=== PATIENT | female | born 1950 | race Caucasian/White ===

== ENCOUNTER → 2023-09-06 08:38 | Outpatient (REF) | payer MEDICARE, OTHER, SELFPAY | LOC: RAD 08:38 | PROVIDERS: ATTENDING PHYSICIAN Internal Medicine Cardiovascular Disease; FAMILY PHYSICIAN Family Medicine | DX: R06.02 Shortness of breath (principal); R07.89 Other chest pain | CPT/HCPCS: 75574; Q9967 ==

== ENCOUNTER → 2023-11-22 16:42 | Outpatient (REF) | payer MEDICARE, OTHER, SELFPAY | LOC: HWWDC 16:42 | PROVIDERS: ATTENDING PHYSICIAN Surgery; FAMILY PHYSICIAN Physician Assistant Medical | DX: Z12.31 Encounter for screening mammogram for malignant neoplasm of breast (principal); R92.2 Inconclusive mammogram | CPT/HCPCS: 77063; 77067 ==

== ENCOUNTER → 2024-01-31 10:50 | Outpatient (REF) | payer MEDICARE, OTHER, SELFPAY | LOC: WDC 10:50 | PROVIDERS: ATTENDING PHYSICIAN Surgery; FAMILY PHYSICIAN Physician Assistant Medical | DX: R92.2 Inconclusive mammogram (principal) | CPT/HCPCS: 76641 ==

== ENCOUNTER 2024-03-29 10:26 | Emergency (ER) | payer MEDICARE, OTHER, SELFPAY ==
[2024-03-29 10:28] VITALS: BP 153/89
[2024-03-29 11:36] LABS: % Basophils 0.3 % (0-2); % Eosinophils 2.4 % (0-6); % Immature Granulocytes 0.7 % (0-0.5); % Lymphocytes 11.7 % (20.5-51.1); % Monocytes 8.2 % (1.7-9.3); % Neutrophils 76.7 % (42.2-75.2); Absolute Eosinophils 0.2 10^3/uL (0-0.7); Absolute Immature Granulocytes 0.1 10^3/uL (0-0.05); Absolute Lymphocytes 1.1 10^3/uL (1.2-3.4); Absolute Monocytes 0.8 10^3/uL (0.1-0.6); Hematocrit 37.9 % (37.0-47.0); Hemoglobin 12.7 g/dL (12.0-16.0); Mean Corp Hgb Conc. 33.5 g/dL (33.0-37.0); Mean Corpuscular Hgb 28.3 pg (27.0-31.0); Mean Corpuscular Volume 84.6 fL (81.0-99.0); Mean Platelet Volume 10.4 fL (7.4-10.4); Nucleated Red Blood Cells % 0 %; Platelet Count 221 10^3/uL (130-400); Red Blood Cell Count 4.48 10^6/uL (4.20-5.40); Red Cell Dist. Width 14.7 % (11.5-14.5); White Blood Cell Count 9.1 10^3/uL (4.8-10.8)
[2024-03-29] MEDS: TORADOL 15 MG IM (11:43)
[2024-03-29 11:57] LABS: ALT (SGPT) 46 U/L (0-35); AST (SGOT) 41 U/L (14-36); Albumin 4.1 g/dl (3.5-5.0); Alkaline Phosphatase 81 U/L (38-126); Blood Urea Nitrogen 16 mg/dl (7-17); Calcium 9.5 mg/dl (8.4-10.2); Carbon Dioxide 25 mmol/L (22-30); Chloride 106 mmol/L (98-107); Glucose 120 mg/dl (70-99); Potassium 4.4 mmol/L (3.5-5.1); Sodium 141 mmol/L (135-145); Total Bilirubin 0.8 mg/dl (0.2-1.3); Total Protein 6.6 g/dl (6.3-8.2); eGFR > 60.00
--- NOTE | 2024-03-29 12:08 | ED.GENMED ---
History of Present Illness
General
Chief Complaint: Musculo-Skeletal Complaint
Time Seen by Provider: 03/29/24 11:03
History of Present Illness
History of Present Illness:
73-year-old female with history of prior knee replacement bilaterally presenting to the emergency department for knee pain. Patient reports 3 days ago she had a tooth implant placed in her left upper mouth. After she left the dentist office, she
reported some dizziness. She woke up the following morning again with some dizziness, as well as bilateral shoulder pain and bilateral knee pain. Today the knee pain feels worse. Reports diffuse pain. She called the dentist this, had been
prescribed amoxicillin and they thought may be secondary to the amoxicillin. She denies chest pain or difficulty breathing. Denies abdominal pain. She denies injury. She denies numbness or tingling to her extremities. She has been taking
Tylenol Motrin for pain. She denies fever or systemic symptoms. She denies additional acute medical complaints.
Past History
Past History
ED Past Medical History: Hypercholesterolemia and NIDDM (diet); Negative HTN
ED Past Surgical History: Negative Cardiac
Social History
Tobacco: Non-smoker
Alcohol: Occasional
Drug: None
Personal:
Living: with family
Employment: Employed
Family History
Family History: Hypertension; Negative Early CAD, CAD or Sudden
Phy Exam
Physical Exam
Physical Exam:
General: Well-appearing, no clinical signs of dehydration, nontoxic and in no acute distress
HEENT: protecting airway
Neck: appears supple
CV: Normal heart rate
Resp: No accessory muscle use, no increased work of breathing
Abd: no distension
Extremities: No deformities, no swelling, no erythema, generalized tenderness of bilateral knees. Range of motion intact
Neuro: alert, no focal neurologic deficit
: deferred
Rectal: deferred
Psych: Normal affect
Skin: Intact
Course
Orders/Labs/Results
Orders:
Orders
03/29/24 11:22
Ketorolac [Toradol] 15 mg IM NOW STA
Knee, Left 4 or More Views [CR Knee - Left 4 Or More View*] Urgent
Comment:
Reason For Exam: pain, hx of replacement
Knee, Right 4 or More Views [CR Knee- Right 4 Or More View*] Urgent
Comment:
Reason For Exam: pain, hx of replacement
03/29/24 11:30
Complete Blood Count/With Diff Urgent
Comprehensive Metabolic Panel Urgent
Abnormal Lab Results
03/29/24
11:30
RDW 14.7 H %
(11.5-14.5)
Abs Immat Gran (auto) 0.1 H 10^3/uL
(0-0.05)
Absolute Neuts (auto) 7.0 H 10^3/uL
(1.4-6.5)
Absolute Lymphs (auto) 1.1 L 10^3/uL
(1.2-3.4)
Absolute Monos (auto) 0.8 H 10^3/uL
(0.1-0.6)
Immature Gran % 0.7 H %
(0-0.5)
Neutrophils % 76.7 H %
(42.2-75.2)
Lymphocytes % 11.7 L %
(20.5-51.1)
Glucose 120 H mg/dl
(70-99)
AST 41 H U/L
(14-36)
ALT 46 H U/L
(0-35)
03/29/24 11:30
03/29/24 11:30
Vital Signs
Initial and Last Documented VS:
Initial Vital Signs
Temp Pulse Resp BP Pulse Ox
98.4 F 90 18 153/89 96
03/29/24 10:28 03/29/24 10:28 03/29/24 10:28 03/29/24 10:28 03/29/24 10:28
Last Documented Vital Signs
Temp Pulse Resp BP Pulse Ox
98.4 F 90 18 153/89 96
03/29/24 10:28 03/29/24 10:28 03/29/24 10:28 03/29/24 10:28 03/29/24 10:28
MDM/Problems Addressed
MDM/Problems Addressed:
73-year-old female with history of bilateral knee replacement presenting for bilateral knee pain after a dental implant placed 3 days ago. Vital signs on arrival are normal.
On exam patient is well-appearing, no acute distress or discomfort. Overall benign examination. No focal abnormality to patient's joints, reporting pain to her shoulders and her knees. No erythema or warmth of the joints. Range of motion grossly
intact. No swelling or deformity. Sensation intact. Suspect musculoskeletal quality to patient's pain. Possible slight reaction to lidocaine/bupivacaine injection to the mouth. However at this time do not suspect severe lidocaine toxicity. Do
not suspect reaction to amoxicillin, does not consistent with allergic reaction. Will screen with laboratory analysis and x-ray imaging of the knees.
Labs are unremarkable. X-rays of the knees without acute abnormality, no effusion, no deformity. Toradol with pain. At this time continue to suspect musculoskeletal etiology to patient's symptoms. Advised continued outpatient supportive therapy.
Return precautions discussed and patient verbalized understanding
*Critical Care Note
Total Time (30-74mins, 75-104mins- exclusive of procedures): Not Applicable
ED Attending Note
-
Portions of this chart may have been created with voice recognition software.� Occasional wrong word or��sound alike� substitutions may have occurred due to the inherent limitations of voice recognition software.
Discharge Plan
Departure
Patient with high blood pressure during this ER visit?: No
Condition: Good
Discharge Problem:
Acute bilateral knee pain
Instructions: Knee Pain (DC), Swollen Joints (DC)
Prescriptions:
No Action
esomeprazole magnesium [Nexium] 40 mg Capsule,Delayed Release(Dr/Ec)
40 mg PO DAILY
fluticasone propionate [Flonase] 50 mcg/actuation [place],Suspension
1 spray INTRANASAL DAILY
escitalopram oxalate [Lexapro] 10 mg Tablet
10 mg PO QPM
multivitamin Tablet
1 tab PO DAILY
acetaminophen [Tylenol] 325 mg Tablet
650 mg PO Q4H PRN (Reason: shoulder pain)
fexofenadine [Sylvia] 60 mg Tablet
60 mg PO DAILY
ascorbic acid (vitamin C) [Vitamin C] 500 mg Tablet
500 mg PO DAILY
cholecalciferol (vitamin D3) [Vitamin D3] 25 mcg (1,000 unit) Tablet
25 mcg PO DAILY
cyclosporine 0.05 % Drops
1 drp BOTH EYES DAILY
[place] 3 Fish Oil
1 cap PO DAILY
Referrals:
Kristen Zeng PA [Family Provider] -
Activity Restrictions/Additional Instructions:
You were seen in the emergency department for joint pain
You were found to have normal x-rays of your knees and normal laboratory analysis.
Please follow-up closely with your primary care physician.
Return to the emergency department for any worsening of your symptoms, or any development of chest pain, difficulty breathing, abdominal pain with persistent vomiting and inability to tolerate food or liquid by mouth (concern for dehydration),
weakness, numbness or tingling to your extremities, warmth or swelling to your joints, headache or confusion, fever greater than 100.4, or any additional symptoms that are concerning to you.
Thank you for choosing [facility].
Interventions
Interventions:
*Risk Screen - Suicide Last Done: 03/29/24 10:28
*General Assessment Last Done: 03/29/24 10:28
*Neglect/Abuse Screening Last Done: 03/29/24 10:28
*ED COVID-19 Vaccine History Last Done: 03/29/24 11:10
ED-Musculoskeletal Assessment Last Done: 03/29/24 11:32
Discharge Date and Time
Print Language: JORDANIAN
[2024-03-29 13:58] VITALS: BP 137/78
== END 2024-03-29 14:09 | disposition home or self-care (01) ==
LOC: EMR 10:26
PROVIDERS: EMERGENCY PHYSICIAN Student in an Organized Health Care Education/Training Program; FAMILY PHYSICIAN Physician Assistant Medical
DX: M25.562 Pain in left knee (principal); M25.561 Pain in right knee; E78.00 Pure hypercholesterolemia, unspecified; E11.9 Type 2 diabetes mellitus without complications; Z96.653 Presence of artificial knee joint, bilateral
CPT/HCPCS: 99284; 96372; 73564; 80053; 85025

== ENCOUNTER → 2024-07-28 10:50 | Outpatient (REF) | payer MEDICARE, OTHER, SELFPAY | LOC: HWRAD 10:50 | PROVIDERS: ATTENDING PHYSICIAN Student in an Organized Health Care Education/Training Program | DX: M54.50 Low back pain, unspecified (principal); R10.84 Generalized abdominal pain | CPT/HCPCS: 72110; 76700 ==

== ENCOUNTER → 2024-09-06 09:52 | Outpatient (REF) | payer MEDICARE, OTHER, SELFPAY | LOC: HWRAD 09:52 | PROVIDERS: ATTENDING PHYSICIAN Physician Assistant Medical | DX: M81.0 Age-related osteoporosis without current pathological fracture (principal) | CPT/HCPCS: 77080 ==

== ENCOUNTER → 2024-09-20 07:45 | Outpatient (REF) | payer MEDICARE, OTHER, SELFPAY | LOC: WDC 07:45 | PROVIDERS: ATTENDING PHYSICIAN Nurse Practitioner Adult Health; FAMILY PHYSICIAN Physician Assistant Medical | DX: R92.8 Other abnormal and inconclusive findings on diagnostic imaging of breast (principal) | CPT/HCPCS: 76642 ==

== ENCOUNTER 2025-03-27 06:14 | Day surgery (SDC) | payer MEDICARE, OTHER, SELFPAY | END 2025-03-27 10:46 | disposition home or self-care (01) | LOC: GI 06:14 | PROVIDERS: ATTENDING PHYSICIAN Surgery | DX: Z12.11 Encounter for screening for malignant neoplasm of colon (principal); Z86.0100 Personal history of colon polyps, unspecified; Z80.0 Family history of malignant neoplasm of digestive organs; K57.30 Diverticulosis of large intestine without perforation or abscess without bleeding; Z83.719 Family history of colon polyps, unspecified; K63.5 Polyp of colon; D12.8 Benign neoplasm of rectum | CPT/HCPCS: 45380; 88305 ==

== ENCOUNTER → 2025-06-06 14:00 | Outpatient (REF) | payer MEDICARE, OTHER, SELFPAY | LOC: MRI 14:00 | PROVIDERS: ATTENDING PHYSICIAN Physical Medicine & Rehabilitation; FAMILY PHYSICIAN Physician Assistant Medical | DX: M54.16 Radiculopathy, lumbar region (principal) | CPT/HCPCS: 72148 ==